=== PATIENT | male | born 1980 | race African-American/Black ===

== ENCOUNTER 2021-12-13 01:42 | Emergency (ER) | payer OTHER ==
[2021-12-13 01:53] VITALS: BP 169/100; PULSE 56; TEMP 98.2; BMI 24.3
== END 2021-12-13 03:12 | disposition home or self-care (01) ==
LOC: JER 01:42
PROC: 0CQ0XZZ Repair Upper Lip, External Approach (ICD-10-PCS; principal; 2021-12-13)
DX: S01.511A Laceration without foreign body of lip, initial encounter (principal); W26.8XXA Contact with other sharp object(s), not elsewhere classified, initial encounter
CPT/HCPCS: 99282-25

== ENCOUNTER 2022-09-03 22:28 | Emergency (ER) | payer OTHER ==
[2022-09-03 22:33] VITALS: BP 156/87; PULSE 83; RESP 19; TEMP 97.6; BMI 24.5
== END 2022-09-04 02:52 | disposition home or self-care (01) ==
LOC: JER 22:28
DX: S09.90XA Unspecified injury of head, initial encounter (principal); V47.5XXA Car driver injured in collision with fixed or stationary object in traffic accident, initial encounter
CPT/HCPCS: 70450-TC; 72125-TC; 99284-25